=== PATIENT | female | born 1980 | race Caucasian/White ===

== ENCOUNTER → 2020-12-02 18:00 | Observation (INO) ==
[2020-12-02 16:15] LABS: Amorphous Sediment,Urine Few per hpf (None-Few); Bacteria,Urine Few per hpf (None-Few); Bilirubin,Urine Negative (Negative); Blood,Urine Negative (Negative); Clarity,Urine Turbid (Clear); Color,Urine Yellow (Yellow); Glucose,Urine (UA) Normal (Normal); Ketones,Urine Negative (Negative); Leukocyte Esterase,Urine Small (Negative); Mucus,Urine Few per lpf (None-Few); Nitrite,Urine Negative (Negative); PH,Urine 5.5 pH Units (5.0-8.0); Protein,Urine 50 mg/dL (Neg-Trace); RBC,Urine 0-3 per hpf (0-3); Specific Gravity,Urine 1.029 (1.010-1.025); Squamous Epithelial Cell,Urine Many per hpf (None-Few); Urobilinogen,Urine Normal (Normal)
[2020-12-02 16:18] LABS: Basophils % 0.3 %; Eosinophils # 0.1 K/mcL (0.0-0.6); Eosinophils % 0.9 %; Hematocrit 38.8 % (35.3-44.9); Hemoglobin 13.4 g/dL (11.5-15.4); Immature Granulocytes % 1.3 % (0-4); Lymphocytes % 15.3 %; Mean Corpuscular HGB Conc 34.5 g/dL (31.6-35.5); Mean Corpuscular Volume 89.8 fL (83.0-100.0); Mean Platelet Volume 10.3 fL (9.4-12.4); Monocytes # 0.7 K/mcL (0.0-1.3); Monocytes % 5.5 %; Neutrophils # 9.9 K/mcL (1.6-8.9); Platelet Count 308 K/mcL (140-400); Red Blood Count 4.32 M/mcL (3.82-4.97); Segmented Neutrophils % 76.7 %; White Blood Count 12.8 K/mcL (4.3-11.1)
[2020-12-02 16:22] LABS: Protein/Creatinine Ratio,Urine 0.16 mg/mg (0.00-0.20)
[2020-12-02 16:36] LABS: Alanine Aminotransferase 9 Units/L (7-52); Aspartate Amino Transferase 10 Units/L (13-39); BUN/Creatinine Ratio 13 (6-26); Blood Urea Nitrogen 9 mg/dL (6-20); Lactate Dehydrogenase 152 Units/L (140-271); eGFR For African Americans > 60 (> 60); eGFR For Non-African Americans > 60 (> 60)
== END | disposition home or self-care (01) ==
LOC: 1NENULAB
PROVIDERS: ADMIT Registered Nurse; ATTEND Registered Nurse

== ENCOUNTER 2020-12-24 21:30 | Inpatient (IN) ==
[2020-12-24 15:52] LABS: Basophils % 0.3 %; Eosinophils # 0.2 K/mcL (0.0-0.6); Eosinophils % 1.3 %; Hematocrit 37.9 % (35.3-44.9); Hemoglobin 13.1 g/dL (11.5-15.4); Lymphocytes # 2.1 K/mcL (0.6-4.6); Mean Corpuscular HGB Conc 34.6 g/dL (31.6-35.5); Mean Corpuscular Hemoglobin 30.8 pg (28.0-33.3); Mean Corpuscular Volume 89.2 fL (83.0-100.0); Mean Platelet Volume 10.6 fL (9.4-12.4); Monocytes # 0.6 K/mcL (0.0-1.3); Monocytes % 4.8 %; Neutrophils # 9.5 K/mcL (1.6-8.9); Platelet Count 275 K/mcL (140-400); Red Blood Count 4.25 M/mcL (3.82-4.97); Red Cell Distribution Width 13.3 % (11.5-14.5); Segmented Neutrophils % 75.6 %; White Blood Count 12.5 K/mcL (4.3-11.1)
[2020-12-24 15:54] LABS: Bacteria,Urine Few per hpf (None-Few); Bilirubin,Urine Negative (Negative); Blood,Urine Negative (Negative); Clarity,Urine Turbid (Clear); Color,Urine Light-Yellow (Yellow); Glucose,Urine (UA) Normal (Normal); Ketones,Urine Negative (Negative); Leukocyte Esterase,Urine Trace (Negative); Mucus,Urine Few per lpf (None-Few); Nitrite,Urine Negative (Negative); PH,Urine 5.5 pH Units (5.0-8.0); Protein,Urine 50 mg/dL (Neg-Trace); RBC,Urine 0-3 per hpf (0-3); Renal Epithelial Cells,Urine Few per hpf (None-Few); Specific Gravity,Urine 1.021 (1.010-1.025); Squamous Epithelial Cell,Urine Moderate per hpf (None-Few); Transitional Epi Cells,Urine Few per hpf (None-Few); Urobilinogen,Urine Normal (Normal)
[2020-12-24 16:03] LABS: Protein/Creatinine Ratio,Urine 0.39 mg/mg (0.00-0.20)
[2020-12-24 16:11] LABS: Alanine Aminotransferase 7 Units/L (7-52); Aspartate Amino Transferase 9 Units/L (13-39); BUN/Creatinine Ratio 14 (6-26); Blood Urea Nitrogen 10 mg/dL (6-20); Lactate Dehydrogenase 157 Units/L (140-271); Uric Acid 5.9 mg/dL (2.3-7.6); eGFR For African Americans > 60 (> 60); eGFR For Non-African Americans > 60 (> 60)
[~2020-12-24 21:30] MED LIST: EPHEDrine 50 MG/ML VIAL IVP PRN; Epidural Premix (fent/bupiv) 110 ML EP SCH; Famotidine 20 MG/2 ML VIAL IVP PRN; Metoclopramide 10 MG/2 ML VIAL IVP PRN; NIFEdipine XL (24 HR) 30 MG TAB.ER.24 PO ONE; Naloxone 0.4 MG/ML INJ IVP PRN; miSOPROStoL 25 MCG TABLET PO SCH
[2020-12-24] MEDS ORDERED: Acetaminophen 325 MG TABLET PO PRN (22:32)
[2020-12-25] MEDS ORDERED: *HR* Labetalol 20 MG/4 ML SYRINGE IVP ONE ×3 (01:46→15:40)
[2020-12-25] MEDS ORDERED: Calcium Gluconate 1,000 MG/10 ML VIAL IVP PRN (05:48)
[2020-12-25] MEDS ORDERED: *HR* Labetalol 20 MG/4 ML SYRINGE IVP PRN (05:48)
[2020-12-25] MEDS ORDERED: *HR* FentaNYL (PF) 100 MCG/2 ML VIAL ONE ×2 (07:07→16:22)
[2020-12-25] MEDS ORDERED: EPHEDrine 50 MG/ML VIAL ONE (07:07)
[2020-12-25] MEDS ORDERED: *HR* Morphine Sulfate/PF 10 MG/10 ML AMPUL ONE (07:07)
[2020-12-25] MEDS ORDERED: Ondansetron 4 MG/2 ML VIAL ONE (07:10)
[2020-12-25] MEDS ORDERED: *HR* Phenylephrine 10 MG/ML VIAL ONE (07:10)
[2020-12-25] MEDS ORDERED: miSOPROStoL 25 MCG TABLET PO ONE (08:15)
[2020-12-25] MEDS: Ringers Solution, Lactated 1,000 ML IVC SCH ×2 (08:47→17:20)
[2020-12-25] MEDS: Magnesium Sulf 20 gm/SW 500mL 20 GM/500 ML IV.SOLN IVC SCH ×2 (08:47→17:20)
[2020-12-25] MEDS ORDERED: *HR* FentaNYL (PF) 100 MCG/2 ML VIAL EP ONE (10:33)
[2020-12-25] MEDS ORDERED: Ropivacaine/PF 0.2% 20 ML VIAL EP ONE (10:33)
[2020-12-25] MEDS ORDERED: Oxytocin 20 units/ LR 1000 mL 20 UNIT/1,000 ML BAG IVC SCH (13:45)
[2020-12-25] MEDS ORDERED: Ropivacaine/PF 0.2% 20 ML VIAL ONE (16:22)
[2020-12-26] MEDS ORDERED: Lidocaine/EPI 1:200k 2% PF 20 ML VIAL ONE (02:40)
[2020-12-26] MEDS ORDERED: *HR* Midazolam HCl 2 MG/2 ML VIAL ONE (03:44)
[2020-12-26] MEDS ORDERED: Ketamine *HR* 500 MG/10 ML MDV ONE (03:44)
[2020-12-26] MEDS ORDERED: Ampicillin 2,000 MG in 0.9 % Sodium Chloride Mini Bag 100 ML IVPB ONE ×2 (03:50→10:02)
[2020-12-26] MEDS ORDERED: Ondansetron 4 MG/2 ML VIAL ONE (04:10)
[2020-12-26] MEDS ORDERED: *HR* FentaNYL (PF) 100 MCG/2 ML VIAL ONE ×2 (04:16→05:13)
[2020-12-26] MEDS ORDERED: 0.9 % Sodium Chloride 1,000 ML ONE (04:31)
[2020-12-26] MEDS ORDERED: *HR* Propofol 200 MG/20 ML VIAL IVP ONE (04:32)
[2020-12-26] MEDS ORDERED: *HR* Succinylcholine 200 MG/10 ML VIAL IVP ONE (04:33)
[2020-12-26] MEDS ORDERED: *HR* Rocuronium Bromide 50 MG/5 ML VIAL ONE (04:37)
[2020-12-26] MEDS ORDERED: Gentamicin 80 MG in 0.9 % Sodium Chloride 100 ML IVPB SCH (05:00)
[2020-12-26] MEDS ORDERED: *HR* HYDROMORPHONE 2 MG/ML VIAL ONE (05:26)
[2020-12-26] MEDS ORDERED: *HR* OxyCODONE Immed Rel 5 MG TABLET PO PRN (05:32)
[2020-12-26] MEDS ORDERED: Ondansetron 4 MG/2 ML VIAL IVP PRN ×2 (05:32→10:02)
[2020-12-26] MEDS ORDERED: *HR* HYDROmorphone PF 0.5 MG/0.5 ML SYRINGE IVP PRN (05:32)
[2020-12-26] MEDS ORDERED: Acetaminophen IV 1,000 MG/100 ML BAG IVPB ONE (05:34)
[2020-12-26] MEDS ORDERED: Clindamycin 900 MG/50 ML 900 MG/50 ML IV.SOLN IVPB SCH (08:00)
[2020-12-26] MEDS ORDERED: Ringers Solution, Lactated 1,000 ML IVC SCH (10:02)
[2020-12-26] MEDS ORDERED: Rho Immune Globulin 1,500 UNIT SYRINGE IM ONE (10:02)
[2020-12-26] MEDS ORDERED: Morphine PCA 30 MG/ 30 ML 30 ML PCA.VIAL IVC PRN (10:02)
[2020-12-26] MEDS ORDERED: Naloxone 0.4 MG/ML INJ IVP PRN (10:02)
[2020-12-26] MEDS ORDERED: Metoclopramide 10 MG/2 ML VIAL IVP PRN (10:02)
[2020-12-26] MEDS ORDERED: Prenatal Vit/FA 1 EACH TABLET PO SCH (10:02)
[2020-12-26] MEDS: Ibuprofen 600 MG TABLET PO SCH ×2 (14:49→21:35)
[2020-12-26] MEDS: Acetaminophen 325 MG TABLET PO SCH ×2 (14:49→21:36)
[2020-12-26] MEDS ORDERED: Piperacillin/Tazobactam 3.375 GM in 0.9 % Sodium Chloride Mini Bag 100 ML IVPB SCH (16:00)
[2020-12-26] MEDS ORDERED: Magnesium Sulf 20 gm/SW 500mL 20 GM/500 ML IV.SOLN IVC SCH (19:00)
[2020-12-26] MEDS: *HR* Enoxaparin 60 MG/0.6 ML SYRINGE SQ SCH (19:46)
[2020-12-26] MEDS: Simethicone 80 MG TAB.CHEW PO PRN (19:52)
[2020-12-27] MEDS: Ibuprofen 600 MG TABLET PO SCH ×4 (05:12→23:04)
[2020-12-27] MEDS: Acetaminophen 325 MG TABLET PO SCH ×4 (05:13→23:04)
[2020-12-27 06:41] LABS: Basophils % 0.3 %; Eosinophils % 0.3 %; Hematocrit 21.7 % (35.3-44.9); Immature Granulocytes % 0.7 % (0-4); Lymphocytes # 2.8 K/mcL (0.6-4.6); Lymphocytes % 17.8 %; Mean Corpuscular HGB Conc 34.1 g/dL (31.6-35.5); Mean Corpuscular Hemoglobin 31.5 pg (28.0-33.3); Mean Corpuscular Volume 92.3 fL (83.0-100.0); Mean Platelet Volume 10.2 fL (9.4-12.4); Monocytes # 0.9 K/mcL (0.0-1.3); Monocytes % 5.8 %; Neutrophils # 11.7 K/mcL (1.6-8.9); Platelet Count 225 K/mcL (140-400); Red Blood Count 2.35 M/mcL (3.82-4.97); Segmented Neutrophils % 75.1 %; White Blood Count 15.6 K/mcL (4.3-11.1)
[2020-12-27 06:45] LABS: Hemoglobin 7.4 g/dL (11.5-15.4)
[2020-12-27] MEDS: *HR* OxyCODONE Immed Rel 5 MG TABLET PO PRN ×3 (07:49→19:08)
[2020-12-27] MEDS: *HR* Enoxaparin 60 MG/0.6 ML SYRINGE SQ SCH ×2 (07:50→22:03)
[2020-12-27] MEDS: Simethicone 80 MG TAB.CHEW PO PRN ×2 (12:10→22:03)
[2020-12-28] MEDS: Acetaminophen 325 MG TABLET PO SCH (04:10)
[2020-12-28] MEDS: *HR* OxyCODONE Immed Rel 5 MG TABLET PO PRN (04:16)
[2020-12-28 05:03] LABS: Basophils % 0.2 %; Eosinophils # 0.1 K/mcL (0.0-0.6); Eosinophils % 0.9 %; Hematocrit 20.6 % (35.3-44.9); Immature Granulocytes % 1.1 % (0-4); Lymphocytes # 2.3 K/mcL (0.6-4.6); Mean Corpuscular Hemoglobin 32.1 pg (28.0-33.3); Mean Corpuscular Volume 94.5 fL (83.0-100.0); Mean Platelet Volume 10.4 fL (9.4-12.4); Monocytes # 0.7 K/mcL (0.0-1.3); Monocytes % 6.4 %; Neutrophils # 8.3 K/mcL (1.6-8.9); Nucleated Red Blood Cells 0.2 /100 WBC (0); Platelet Count 240 K/mcL (140-400); Red Blood Count 2.18 M/mcL (3.82-4.97); Red Cell Distribution Width 13.9 % (11.5-14.5); Segmented Neutrophils % 71.4 %; White Blood Count 11.6 K/mcL (4.3-11.1)
[2020-12-28 05:13] VITALS: TEMP 98.4
[2020-12-28 05:25] LABS: Alanine Aminotransferase 9 Units/L (7-52); Aspartate Amino Transferase 11 Units/L (13-39); BUN/Creatinine Ratio 21 (6-26); Blood Urea Nitrogen 16 mg/dL (6-20); Lactate Dehydrogenase 168 Units/L (140-271); Uric Acid 7.8 mg/dL (2.3-7.6); eGFR For African Americans > 60 (> 60); eGFR For Non-African Americans > 60 (> 60)
[2020-12-28] MEDS: Ibuprofen 600 MG TABLET PO SCH (08:02)
[2020-12-28] MEDS: *HR* Enoxaparin 60 MG/0.6 ML SYRINGE SQ SCH (08:03)
[2020-12-28] MEDS: Simethicone 80 MG TAB.CHEW PO PRN (08:08)
[2020-12-28 08:21] VITALS: BP 159/83; PULSE 93; O2SAT 99
== END 2020-12-28 11:54 | disposition home or self-care (01) | DRG 768 ==
LOC: 1NENULAB → 1NENUOBS 12-26 10:02
PROVIDERS: ADMIT Student in an Organized Health Care Education/Training Program; ATTEND Student in an Organized Health Care Education/Training Program